=== PATIENT | female | born 2000 | race Caucasian/White ===

== ENCOUNTER 2021-12-17 16:30 | Emergency (ER) | payer MEDICAID, OTHER ==
[~2021-12-17] VITALS: Ht 167.6 cm; Wt 105.0 kg
[2021-12-17 16:44] VITALS: BP 128/77
== END 2021-12-17 23:53 | disposition left against medical advice (07) ==
LOC: ER 16:30
DX: Z53.21 Procedure and treatment not carried out due to patient leaving prior to being seen by health care provider (principal)

== ENCOUNTER 2025-02-08 18:45 | Emergency (ER) | payer MEDICAID ==
[~2025-02-08] VITALS: Ht 170.2 cm; Wt 95.0 kg
[2025-02-08 19:04] VITALS: O2SAT 98
[2025-02-08] MEDS: DEXAMETHASONE 4MG TABLET PO ONE (21:45)
[2025-02-08] MEDS ORDERED: IBUP-2028 MT (22:03)
[2025-02-08] MEDS ORDERED: AMOX-494 MT (22:03)
[2025-02-08 22:35] VITALS: BP 132/79; PULSE 63; RESP 14; TEMP 36.5; O2SAT 100
[2025-02-08 22:50] LABS: INFLUENZA TYPE A Presumptive Negative (Pres. Neg.)
[2025-02-08 22:51] LABS: INFLUENZA TYPE B Presumptive Negative (Pres. Neg.)
[2025-02-08 22:52] LABS: RESPIRATORY SYNCYTIAL VIRUS Not Detected (Not Detectd)
== END 2025-02-08 22:38 | disposition home or self-care (01) ==
LOC: ER 18:45
DX: J02.8 Acute pharyngitis due to other specified organisms (principal); Z20.822 Contact with and (suspected) exposure to COVID-19
CPT/HCPCS: 99283; 87426; 87430; 87420; 87070; 87804 ×2; J8540